=== PATIENT | female | born 1990 | race Caucasian/White ===

== ENCOUNTER 2018-05-02 21:00 | Emergency (ER) | END 2018-05-02 23:40 | disposition home or self-care (01) ==

== ENCOUNTER 2019-02-02 21:47 | Emergency (ER) | payer OTHER ==
[~2019-02-02] VITALS: Wt 112.5 kg
[~2019-02-02 21:47] MED LIST: CLIN300C10 PO; FLUC150T PO; IBUP-1542 PO; MICO45CR68 VAG; NITR-58 PO; ONDA4TAB13 PO; TRAM50TA2 PO
--- NOTE | 2019-02-03 02:04 | ERD ---
ER Documentation Chief Complaint Chief Complaint 12WEEKS PREG LOWER AP AND DIARRHEA SINCE AM NO N/V HPI 29-year-old female, with EGA 12 weeks by LMP 10/31/18 , presents emergency department, complaining of pelvic pain and diarrhea for 1 day, the patient reports approximately 3 episodes of nonbloody non-mucous diarrhea per hour. No fever, no abdominal pain, no nausea or vomiting. The patient denies vaginal bleeding. ROS All systems reviewed and are negative except as per history of present illness. Medications Home Meds Active Scripts Hydrocodone/Acetaminophen ([place] 5-325 Tablet) 1 Each Tablet, 1 TAB PO Q6H PRN for PAIN, #7 TAB Prov:SONI OSWALD MD 02/03/19 Cephalexin* (Keflex*) 500 Mg Capsule, 500 MG PO QID for 7 Days, CAP Prov:SONI OSWALD MD 02/03/19 Tramadol HCl (Tramadol HCl) 50 Mg Tablet, 50 MG PO Q6 PRN for SEVERE PAIN LEVEL 7-10, #20 TAB Prov:JODI REBOLLAR NP 05/02/18 Ibuprofen* (Motrin*) 600 Mg Tab, 600 MG PO Q6H PRN for PAIN AND OR ELEVATED TEMP, #30 TAB Prov:JODI REBOLLAR NP 05/02/18 Clindamycin Hcl* (Clindamycin Hcl*) 300 Mg Capsule, 300 MG PO TID for 10 Days, CAP Prov:JODI REBOLLAR NP 05/02/18 Miconazole Nitrate* (Monistat 7*) 45 Gm Cream.appl, 1 APPFUL VAG HS for 7 Days, TUB Prov:TREVA LOZANO 08/25/16 Nitrofurantoin Monohyd Macrocr* (Macrobid*) 100 Mg Capsr, 100 MG PO BID for 7 Days, CAP Prov:TREVA LOZANO 08/25/16 Fluconazole* (Diflucan*) 150 Mg Tablet, 150 MG PO ONCE, #1 TAB Prov:TREVA LOZANO 08/25/16 Ondansetron Hcl* (Zofran*) 4 Mg Tab, 4 MG PO Q6H PRN for NAUSEA AND OR VOMITING for 30 Days, TAB Prov:BAR ALMARAZ 01/25/15 Allergies Allergies: Coded Allergies: No Known Allergy (Unverified , 09/26/14) PMhx/Soc History of Surgery: No Anesthesia Reaction: No Hx Neurological Disorder: No Hx Respiratory Disorders: No Hx Cardiac Disorders: No Hx Psychiatric Problems: No Hx Miscellaneous Medical Probl: No Hx Alcohol Use: No Hx Substance Use: No Hx Tobacco Use: No Physical Exam Vitals Vital Signs Date Temp Pulse Resp B/P (MAP) Pulse Ox O2 O2 Flow FiO2 Time Delivery Rate 02/02/19 99.4 93 20 133/72 100 21:50 (92) Physical Exam Const: No acute distress Head: Atraumatic Eyes: Normal Conjunctiva ENT: Normal External Ears, Nose and Mouth. Neck: Full range of motion. No meningismus. Resp: Clear to auscultation bilaterally Cardio: Regular rate and rhythm, no murmurs Abd: Soft, non tender, non distended. Normal bowel sounds Skin: No petechiae or rashes Back: No midline or flank tenderness Ext: No cyanosis, or edema Neur: Awake and alert Psych: Normal Mood and Affect Result Diagram: 02/03/19 0214 02/03/19 0214 Results 24 hrs Laboratory Tests Test 02/03/19 02:14 White Blood Count 9.4 10^3/ul Red Blood Count 4.51 10^6/ul Hemoglobin 14.1 g/dl Hematocrit 40.9 % Mean Corpuscular Volume 90.7 fl Mean Corpuscular Hemoglobin 31.3 pg Mean Corpuscular Hemoglobin Concent 34.5 g/dl Red Cell Distribution Width 12.5 % Platelet Count 347 10^3/UL Mean Platelet Volume 8.6 fl Immature Granulocytes % 0.600 % Neutrophils % 62.6 % Lymphocytes % 24.0 % Monocytes % 10.0 % Eosinophils % 2.3 % Basophils % 0.5 % Nucleated Red Blood Cells % 0.0 /100WBC Immature Granulocytes # 0.060 10^3/ul Neutrophils # 5.9 10^3/ul Lymphocytes # 2.3 10^3/ul Monocytes # 0.9 10^3/ul Eosinophils # 0.2 10^3/ul Basophils # 0.1 10^3/ul Nucleated Red Blood Cells # 0.0 10^3/ul Urine Color YELLOW Urine Clarity CLOUDY Urine pH 6.0 Urine Specific [place] 1.014 Urine Ketones NEGATIVE mg/dL Urine Nitrite NEGATIVE mg/dL Urine Bilirubin NEGATIVE mg/dL Urine Urobilinogen NEGATIVE mg/dL Urine Leukocyte Esterase 1+ Camille/ul Urine Microscopic RBC 2 /HPF Urine Microscopic WBC 9 /HPF Urine Squamous Epithelial Cells MANY /HPF Urine Bacteria FEW /HPF Urine Hemoglobin NEGATIVE mg/dL Urine Glucose NEGATIVE mg/dL Urine Total Protein NEGATIVE mg/dl Sodium Level 142 mmol/L Potassium Level 3.9 mmol/L Chloride Level 107 mmol/L Carbon Dioxide Level 21 mmol/L Anion Gap 14 Blood Urea Nitrogen 7 mg/dl Creatinine 0.30 mg/dl Est Glomerular Filtrat Rate mL/min > 60 mL/min Glucose Level 137 mg/dl Calcium Level 9.4 mg/dl Current Medications Medications Dose Sig/Sagar Start Time Status Last (Trade) Ordered Route PRN Stop Time Admin Dose Reason Admin Sodium 1,000 ml @ Q1H STAT 02/03/19 DC 02/03/19 Chloride 1,000 mls/hr IV 02:09 02:26 02/03/19 03:08 650 mg ONCE ONCE 02/03/19 DC 02/03/19 Acetaminophen PO 02:14 02:25 (Tylenol 02/03/19 02:15 Tab) Cephalexin 500 mg ONCE ONCE 02/03/19 DC 02/03/19 (Keflex) PO 04:30 04:11 02/03/19 04:31 Patient: TON CHRISTIANSON : 1990 Age: 29 Sex: F MR #: [id number] DOS: 02/03/19 0209 Ordering MD: SONI OSWALD MD Location: [facility] Room/Bed: PROCEDURE: US OB. CLINICAL INDICATION: Pelvic pain. patient. Prior ultrasound suggesting demise. TECHNIQUE: Transabdominal views of the pelvis are available for review. COMPARISON: 01/31/2019 FINDINGS: Only transabdominal scanning was performed. Again seen is a intrauterine gestation. [place]-rump length is 2.3 cm which would correspond to a 9-week and 0- day . Gestational sac size was 4.43 cm which would correspond to a 10- week and 1-day gestation. No heart tone was able to be obtained, as on the prior study. No transvaginal scanning was performed, however. No implantation hemorrhage is seen. The ovaries were not seen. No gross adnexal mass or free fluid. IMPRESSION: Transabdominal study suggesting demise as reported previously. Transvaginal scanning can be performed for additional confirmation. RPTAT: HLBE Physician Kasia Date Time Electronically viewed and signed by Francoise Degroot Physician on 02/03/2019 03:43 Procedures/MDM Vital signs stable, Physical exam unremarkable. Differential diagnosis include but not limited to: UTI, gastroenteritis, threatening , incomplete versus complete , ectopic , physiologic implantation bleeding, molar . Physical examination and clinical presentation most likely consistent with missed . During the ED course the patient remained hemodynamically stable and asym ptomatic. Results and clinical impression discussed with patient who agrees with management. The patient is stable to be treated outpatient and will be discharged home with close monitoring and follow-up in 2 days with her primary physician. Bed rest and pelvic rest recommended until further medical evaluation. The patient was instructed regarding the outcomes and the potential complications like severe bleeding and . If the patient presents severe bleeding or pain, she was instructed to return to the hospital immediately. Disclaimer: Inadvertent spelling and grammatical errors are likely due to EHR/dictation software use and do not reflect on the overall quality of patient care. Also, please note that the electronic time recorded on this note does not necessarily reflect the actual time of the patient encounter. Departure Diagnosis: Primary Impression: Pelvic pain complicating Additional Impressions: Inevitable UTI (urinary tract infection) Condition: Stable Additional Instructions: Thank you very much for allowing us to participate in your care. Your health and safety is our top priority at [facility]. Call your primary care doctor TOMORROW for an appointment during the next 2-4 days and bring all the information and medications prescribed. Have prescriptions filled and follow precisely the directions on the label. If the symptoms get worse and your provider is unavailable, return to the Emergency Department immediately. SONI OSWALD MD Feb 03, 2019 02:04
[2019-02-03] MEDS ORDERED: SOD CHLORIDE 0.9% 1,000 ML IV STA (02:09)
[2019-02-03] MEDS ORDERED: ACETAMINOPHEN 325 MG TAB PO ONE (02:14)
[2019-02-03] MEDS ORDERED: CEPHALEXIN 500 MG CAP PO ONE (04:30)
[2019-02-03] MEDS ORDERED: CEPH-443 PO (04:51)
[2019-02-03] MEDS ORDERED: HYDR-4011 PO (04:51)
[2019-02-03 05:07] VITALS: BP 120/66; PULSE 89; RESP 20
== END 2019-02-03 05:08 | disposition home or self-care (01) ==
LOC: FTE 21:47
DX: O23.41 Unspecified infection of urinary tract in pregnancy, first trimester (principal); R10.2 Pelvic and perineal pain; Z3A.10 10 weeks gestation of pregnancy
CPT/HCPCS: 76801; 80048; 81001; 85025; J7030; Z7610; 36415; 96360

== ENCOUNTER 2019-02-14 05:52 | Emergency (ER) | payer OTHER ==
[~2019-02-14] VITALS: Ht 157.5 cm; Wt 111.6 kg
[~2019-02-14 05:52] MED LIST changes: +CEPH-443 PO; +HYDR-4011 PO
[2019-02-14 05:57] VITALS: Ht 157.5 cm; Wt 111.6 kg
[2019-02-14] MEDS ORDERED: IBUP-1542 PO (08:28)
--- NOTE | 2019-02-14 08:44 | ERD ---
ER Documentation Chief Complaint Chief Complaint PT TOLD SHE IS MISCARRYING , EXPERIENCING INCREASED PAIN HPI 29-year-old female presenting with vaginal bleeding. Patient states she was told she had demise and started having heavy bleeding 2 days ago with clots. She has severe pelvic pain. Patient was told her fetus is measuring about 9 weeks however per dates she is supposed to be 13 weeks. LKMP October 31. . Being seen at [facility]. Denies medical problems. NKDA. Surgical history is cholecystectomy. Social history denies ROS All systems reviewed and are negative except as per history of present illness. Medications Home Meds Active Scripts Ibuprofen* (Motrin*) 600 Mg Tab, 600 MG PO Q6, #30 TAB Prov:GORDO GUAMAN PA-C 02/14/19 Hydrocodone/Acetaminophen ([place] 5-325 Tablet) 1 Each Tablet, 1 TAB PO Q6H PRN for PAIN, #7 TAB Prov:SONI OSWALD MD 02/03/19 Cephalexin* (Keflex*) 500 Mg Capsule, 500 MG PO QID for 7 Days, CAP Prov:SONI OSWALD MD 02/03/19 Tramadol HCl (Tramadol HCl) 50 Mg Tablet, 50 MG PO Q6 PRN for SEVERE PAIN LEVEL 7-10, #20 TAB Prov:JODI REBOLLAR NP 05/02/18 Ibuprofen* (Motrin*) 600 Mg Tab, 600 MG PO Q6H PRN for PAIN AND OR ELEVATED TEMP, #30 TAB Prov:JODI REBOLLAR NP 05/02/18 Clindamycin Hcl* (Clindamycin Hcl*) 300 Mg Capsule, 300 MG PO TID for 10 Days, CAP Prov:JODI REBOLLAR NP 05/02/18 Miconazole Nitrate* (Monistat 7*) 45 Gm Cream.appl, 1 APPFUL VAG HS for 7 Days, TUB Prov:TREVA LOZANO 08/25/16 Nitrofurantoin Monohyd Macrocr* (Macrobid*) 100 Mg Capsr, 100 MG PO BID for 7 Days, CAP Prov:TREVA LOZANO 08/25/16 Fluconazole* (Diflucan*) 150 Mg Tablet, 150 MG PO ONCE, #1 TAB Prov:TREVA LOZANO 08/25/16 Ondansetron Hcl* (Zofran*) 4 Mg Tab, 4 MG PO Q6H PRN for NAUSEA AND OR VOMITING for 30 Days, TAB Prov:SUNGBAR Zimmer 01/25/15 Allergies Allergies: Coded Allergies: No Known Allergy (Unverified , 09/26/14) PMhx/Soc History of Surgery: Yes (CHOLECYSTECTOMY) Anesthesia Reaction: No Hx Neurological Disorder: No Hx Respiratory Disorders: No Hx Cardiac Disorders: No Hx Psychiatric Problems: No Hx Miscellaneous Medical Probl: Yes (DM) Hx Alcohol Use: No Hx Substance Use: No Hx Tobacco Use: No Smoking Status: Never smoker FmHx Family History: No diabetes, No coronary disease, No other Physical Exam Vitals Vital Signs Date Temp Pulse Resp B/P (MAP) Pulse Ox O2 O2 Flow FiO2 Time Delivery Rate 02/14/19 98.5 84 20 157/67 99 05:57 (97) Physical Exam GENERAL: The patient is well-appearing, well-nourished, in no acute distress HEENT: Atraumatic. Conjunctivae are pink. Pupils equal, round, and reactive to light. There is no scleral icterus. Tympanic membranes clear bilaterally. Oropharynx clear. CHEST: Clear to auscultation bilaterally. There are no rales, wheezes or rhonchi. HEART: Regular rate and rhythm. No murmurs, clicks, rubs or gallops. ABDOMEN:Soft, nontender and nondistended. Good bowel sounds. No rebound or guarding. No gross peritonitis. No gross organomegaly or masses. Result Diagram: 02/14/19 07 Results 24 hrs Laboratory Tests Test 02/14/19 07:05 White Blood Count 10.5 10^3/ul Red Blood Count 4.34 10^6/ul Hemoglobin 13.6 g/dl Hematocrit 38.5 % Mean Corpuscular Volume 88.7 fl Mean Corpuscular Hemoglobin 31.3 pg Mean Corpuscular Hemoglobin Concent 35.3 g/dl Red Cell Distribution Width 12.1 % Platelet Count 323 10^3/UL Mean Platelet Volume 8.6 fl Immature Granulocytes % 0.500 % Neutrophils % 69.8 % Lymphocytes % 21.6 % Monocytes % 6.3 % Eosinophils % 1.4 % Basophils % 0.4 % Nucleated Red Blood Cells % 0.0 /100WBC Immature Granulocytes # 0.050 10^3/ul Neutrophils # 7.3 10^3/ul Lymphocytes # 2.3 10^3/ul Monocytes # 0.7 10^3/ul Eosinophils # 0.2 10^3/ul Basophils # 0.0 10^3/ul Nucleated Red Blood Cells # 0.0 10^3/ul Beta HCG, Quantitative 150.7 mIU/ml Procedures/MDM DIAGNOSTIC IMAGING REPORT Patient: TON CHRISTIANSON : 1990 Age: 29 Sex: F MR #: [id number] DOS: 02/14/19 0000 Ordering MD: TYRA GUAMAN PA-C Location: [facility] Room/Bed: AMENDMENT: 02/14/2019 8:32:56 AM Raymond Chu M.d Only transabdominal images were obtained. PROCEDURE: US Pelvis. CLINICAL INDICATION: vaginal bleeding TECHNIQUE: Multiple sonographic images of the pelvis were obtained utilizing a transabdominal and endovaginal technique. The images were reviewed on a PACS workstation. COMPARISON: FINDINGS: The uterus is enlarged in size and demonstrates a normal appearance of the myometrium. The uterus measures 15.1 x 5.8 x 79 0 cm in size. The endometrial stripe is heterogeneous in appearance and has the thickness of 33 mm. There is increased vascularity. Previously seen intrauterine gestation is no longer visualized. The ovaries are not seen. No free fluid is present within the pelvis.. RPTAT: AA IMPRESSION: Previously seen intrauterine gestation no longer visualized. Heterogeneous and thickened endometrium with increased vascularity, suspicious for retained products of conception. Follow-up ultrasound and HCG levels is recommended. ER course: Patient has products in the emergency room. They were sent to pathology MDM: 29-year-old female complaining of vaginal bleeding. Patient passed products in the ER. Patient hemoglobin is stable. Patient's bleeding is under control. Patient's ultrasound is within normal limits. Patient is recently passed products so she is recommended to have close follow-up to determine if complete removal of products is performed. Beta quant levels are dropping. Patient is discharged stricter precautions. All questions answered at discharge Departure Diagnosis: Primary Impression: Incomplete miscarriage Condition: Stable Patient Instructions: Miscarriage (Incomplete) Referrals: [facility] YOU HAVE RECEIVED A MEDICAL SCREENING EXAM AND THE RESULTS INDICATE THAT YOU DO NOT HAVE A CONDITION THAT REQUIRES URGENT TREATMENT IN THE EMERGENCY DEPARTMENT. FURTHER EVALUATION AND TREATMENT OF YOUR CONDITION CAN WAIT UNTIL YOU ARE SEEN IN YOUR DOCTORS OFFICE WITHIN THE NEXT 1-2 DAYS. IT IS YOUR RESPONSIBILITY TO MAKE AN APPOINTMENT FOR FOLOW-UP CARE. IF YOU HAVE A PRIMARY DOCTOR --you should call your primary doctor and schedule an appointment IF YOU DO NOT HAVE A PRIMARY DOCTOR YOU CAN CALL OUR PHYSICIAN REFERRAL HOTLINE AT IF YOU CAN NOT AFFORD TO SEE A PHYSICIAN YOU CAN CHOSE FROM THE FOLLOWING [facility] [address] [facility] [address] [facility] [address] [facility] [facility] [address] [facility]. [facility] [address] [facility]. [facility] [address] Additional Instructions: FOLLOW UP WITH YOUR PRIMARY CARE PHYSICIAN TOMORROW.Return to this facility if you are not improving as expected. OGRDO GUAMAN PA-C Feb 14, 2019 08:44
[2019-02-14] MEDS ORDERED: CIPR500T4 PO (09:29)
[2019-02-14 09:36] VITALS: BP 111/58; PULSE 83; RESP 19
[2019-02-14] MEDS ORDERED: ONDA4TAB14 PO (09:36)
== END 2019-02-14 09:38 | disposition home or self-care (01) ==
LOC: FTE 05:52
DX: O03.4 Incomplete spontaneous abortion without complication (principal); O24.111 Pre-existing type 2 diabetes mellitus, in pregnancy, first trimester; E11.9 Type 2 diabetes mellitus without complications; R10.2 Pelvic and perineal pain
CPT/HCPCS: 36415; 76801; 81001; 81003; 84702; 85025; 86900; 86901; 88305; Z7502

== ENCOUNTER 2019-04-26 13:06 | Emergency (ER) | payer OTHER ==
[~2019-04-26] VITALS: Ht 157.5 cm; Wt 113.4 kg
[~2019-04-26 13:06] MED LIST changes: +CIPR500T4 PO; +ONDA4TAB14 PO
[2019-04-26 13:16] VITALS: Ht 157.5 cm; Wt 113.4 kg
[2019-04-26] MEDS ORDERED: ONDANSETRON 4 MG INJ IV STA (13:44)
[2019-04-26] MEDS ORDERED: SOD CHLORIDE 0.9% 1,000 ML IV STA (13:44)
[2019-04-26] MEDS ORDERED: SOD CHLORIDE 0.9% 100 ML ONE (15:12)
[2019-04-26] MEDS ORDERED: IOHEXOL 300MG/ML 150 ML BTL ONE (15:12)
[2019-04-26] MEDS ORDERED: CIPR500T4 PO (16:08)
[2019-04-26] MEDS ORDERED: METR500T PO (16:08)
--- NOTE | 2019-04-26 16:13 | ERD ---
ER Documentation Chief Complaint Chief Complaint EPIGASTRIC PAIN AFTER EATING X 1 WEEK HPI This is a 29-year-old female who has had left-sided abdominal pain for the past week. Pain is usually after she eats. Patient states has had multiple episodes of diarrhea. She had nausea but no vomiting. No urinary symptoms. ROS All systems reviewed and are negative except as per history of present illness. Medications Home Meds Active Scripts Ciprofloxacin Hcl* (Ciprofloxacin Hcl*) 500 Mg Tablet, 500 MG PO BID, #14 TAB Prov:LOLI RODARTE PA-C 04/26/19 Metronidazole* (Flagyl*) 500 Mg Tablet, 500 MG PO TID for 7 Days, TAB Prov:LOLI RODARTE PA-C 04/26/19 Ondansetron (Ondansetron Odt) 4 Mg Tab.rapdis, 4 MG PO Q6H PRN for NAUSEA AND/OR VOMITING, #10 TAB Prov:GORDO GUAMAN PA-C 02/14/19 Ciprofloxacin Hcl* (Ciprofloxacin Hcl*) 500 Mg Tablet, 500 MG PO BID for 7 Days, TAB Prov:GORDO GUAMAN PA-C 02/14/19 Ibuprofen* (Motrin*) 600 Mg Tab, 600 MG PO Q6, #30 TAB Prov:GORDO GUAMAN PA-C 02/14/19 Hydrocodone/Acetaminophen ([place] 5-325 Tablet) 1 Each Tablet, 1 TAB PO Q6H PRN for PAIN, #7 TAB Prov:SONI OSWALD MD 02/03/19 Cephalexin* (Keflex*) 500 Mg Capsule, 500 MG PO QID for 7 Days, CAP Prov:SONI OSWALD MD 02/03/19 Tramadol HCl (Tramadol HCl) 50 Mg Tablet, 50 MG PO Q6 PRN for SEVERE PAIN LEVEL 7-10, #20 TAB Prov:JODI REBOLLAR NP 05/02/18 Ibuprofen* (Motrin*) 600 Mg Tab, 600 MG PO Q6H PRN for PAIN AND OR ELEVATED TEMP, #30 TAB Prov:JODI REBOLLAR NP 05/02/18 Clindamycin Hcl* (Clindamycin Hcl*) 300 Mg Capsule, 300 MG PO TID for 10 Days, CAP Prov:JODI REBOLLAR NP 05/02/18 Miconazole Nitrate* (Monistat 7*) 45 Gm Cream.appl, 1 APPFUL VAG HS for 7 Days, TUB Prov:TREVA LOZANO 08/25/16 Nitrofurantoin Monohyd Macrocr* (Macrobid*) 100 Mg Capsr, 100 MG PO BID for 7 Days, CAP Prov:TREVA LOZANO 08/25/16 Fluconazole* (Diflucan*) 150 Mg Tablet, 150 MG PO ONCE, #1 TAB Prov:TREVA LOZANO 08/25/16 Ondansetron Hcl* (Zofran*) 4 Mg Tab, 4 MG PO Q6H PRN for NAUSEA AND OR VOMITING for 30 Days, TAB Prov:BAR ALMARAZ. 01/25/15 Allergies Allergies: Coded Allergies: No Known Allergy (Unverified , 09/26/14) PMhx/Soc History of Surgery: Yes (CHOLECYSTECTOMY) Anesthesia Reaction: No Hx Neurological Disorder: No Hx Respiratory Disorders: No Hx Cardiac Disorders: No Hx Psychiatric Problems: No Hx Miscellaneous Medical Probl: Yes (DM) Hx Alcohol Use: No Hx Substance Use: No Hx Tobacco Use: No Smoking Status: Never smoker FmHx Family History: No diabetes Physical Exam Vitals Vital Signs Date Temp Pulse Resp B/P (MAP) Pulse Ox O2 O2 Flow FiO2 Time Delivery Rate 04/26/19 100.0 85 19 136/90 98 13:16 (105) Physical Exam INITIAL VITAL SIGNS: Reviewed by me GENERAL: Awake, alert and oriented x 4, well appearing, nontoxic, speaking in full sentences. No acute distress HEAD: Atraumatic RESPIRATORY: Clear to auscultation bilaterally. Symmetric chest wall rise. No wheezing or rales. No accessory muscle use. CV: Regular rate and rhythm. No murmurs, rubs, or gallops. ABDOMEN: Soft, non-distended. Nontender. Negative [place]. Negative [place] point tenderness. No CVA tenderness bilaterally. No guarding. No rebound. Result Diagram: 04/26/19 1359 04/26/19 1359 Results 24 hrs Laboratory Tests Test 04/26/19 13:59 04/26/19 14:11 White Blood Count 7.9 10^3/ul Red Blood Count 4.75 10^6/ul Hemoglobin 14.2 g/dl Hematocrit 40.9 % Mean Corpuscular Volume 86.1 fl Mean Corpuscular Hemoglobin 29.9 pg Mean Corpuscular Hemoglobin Concent 34.7 g/dl Red Cell Distribution Width 12.4 % Platelet Count 305 10^3/UL Mean Platelet Volume 9.0 fl Immature Granulocytes % 0.300 % Neutrophils % 68.5 % Lymphocytes % 21.2 % Monocytes % 9.2 % Eosinophils % 0.3 % Basophils % 0.5 % Nucleated Red Blood Cells % 0.0 /100WBC Immature Granulocytes # 0.020 10^3/ul Neutrophils # 5.5 10^3/ul Lymphocytes # 1.7 10^3/ul Monocytes # 0.7 10^3/ul Eosinophils # 0.0 10^3/ul Basophils # 0.0 10^3/ul Nucleated Red Blood Cells # 0.0 10^3/ul Urine Color STRAW Urine Clarity CLEAR Urine pH 8.0 Urine Specific [place] 1.028 Urine Ketones NEGATIVE mg/dL Urine Nitrite NEGATIVE mg/dL Urine Bilirubin NEGATIVE mg/dL Urine Urobilinogen NEGATIVE mg/dL Urine Leukocyte Esterase TRACE Camille/ul Urine Microscopic RBC 1 /HPF Urine Microscopic WBC 1 /HPF Urine Squamous Epithelial Cells FEW /HPF Urine Hemoglobin NEGATIVE mg/dL Urine Glucose 3+ mg/dL Urine Total Protein NEGATIVE mg/dl Sodium Level 138 mmol/L Potassium Level 3.8 mmol/L Chloride Level 104 mmol/L Carbon Dioxide Level 26 mmol/L Anion Gap 8 Blood Urea Nitrogen 7 mg/dl Creatinine 0.36 mg/dl Est Glomerular Filtrat Rate mL/min > 60 mL/min Glucose Level 278 mg/dl Calcium Level 8.5 mg/dl Total Bilirubin 0.4 mg/dl Direct Bilirubin 0.00 mg/dl Indirect Bilirubin 0.4 mg/dl Aspartate Amino Transf (AST/SGOT) 23 IU/L Alanine Aminotransferase (ALT/SGPT) 42 IU/L Alkaline Phosphatase 123 IU/L Total Protein 7.4 g/dl Albumin 4.0 g/dl Globulin 3.40 g/dl Albumin/Globulin Ratio 1.17 Lipase 46 U/L POC Beta HCG, Qualitative NEGATIVE Current Medications Medications Dose Sig/Sagar Start Time Status Last (Trade) Ordered Route PRN Stop Time Admin Dose Reason Admin Sodium 1,000 ml @ Q1H STAT 04/26/19 DC 04/26/19 Chloride 1,000 mls/hr IV 13:44 04/26/19 14:15 14:43 Ondansetron 4 mg ONCE STAT 04/26/19 DC 04/26/19 HCl (Zofran IV 13:44 04/26/19 14:15 Inj) 13:46 IV Flush 10 ml STK-MED 04/26/19 DC 04/26/19 (NS 10 ml) ONCE .ROUTE 15:12 04/26/19 15:35 15:13 Sodium 100 ml @ ud STK-MED 04/26/19 DC 04/26/19 Chloride ONCE .ROUTE 15:12 04/26/19 15:35 15:13 Iohexol 150 ml STK-MED 04/26/19 DC 04/26/19 (Omnipaque ONCE .ROUTE 15:12 04/26/19 15:36 300mg/ ml) 15:13 Procedures/MDM Patient has left-sided abdominal pain. Minimal tenderness on exam. Labs are unremarkable. CT shows mild diverticulitis, no abscess formation. Patient can be discharged home with Cipro and Flagyl. Patient counseled regarding my diagnostic impression and care plan. Prior to discharge all questions answered. Pt agrees with treatment plan and understands strict return precautions. Pt is instructed to follow up with primary care provider within 24-48 hours. Precautionary instructions provided including instructions to return to the ER if not improving or for any worsening or changing symptoms or concerns. Departure Diagnosis: Primary Impression: Diverticulitis Condition: Stable Patient Instructions: Diverticulitis Additional Instructions: Call your primary care doctor TOMORROW for an appointment during the next 1-2 days.See the doctor sooner or return here if your condition worsens before your appointment time. LOLI RODARTE PA-C Apr 26, 2019 16:13
[2019-04-26 16:20] VITALS: BP 116/74; PULSE 87; RESP 18
== END 2019-04-26 16:20 | disposition home or self-care (01) ==
LOC: FTE 13:06
DX: K57.32 Diverticulitis of large intestine without perforation or abscess without bleeding (principal); E11.9 Type 2 diabetes mellitus without complications
CPT/HCPCS: 36415; 74177; 80053; 81001; 81025; 83690; 85025; 96361; 96374; J2405; J7030; Q9967; Z7502; Z7610